=== PATIENT | male | born 1960 | race African-American/Black ===

== ENCOUNTER 2017-08-05 07:56 | Day surgery (SDC) | payer MEDICAID ==
[~2017-08-05] VITALS: Ht 160 cm; Wt 70.9 kg
[~2017-08-05 07:56] MED LIST: AMLO-512 PO; ASPI81 PO; ATOR40TA28 PO; FERR-89 PO
[2017-08-05] MEDS ORDERED: PROPOFOL 1% 20 ML VIAL IVP ONE (07:57)
[2017-08-05] MEDS ORDERED: SODIUM CHLORIDE 0.9% 1,000 ML IV ONE ×2 (08:16→08:30)
[2017-08-05] MEDS ORDERED: SODIUM CHLORIDE 0.9% 500 ML IV ONE (11:31)
== END 2017-08-05 12:45 | disposition home or self-care (01) ==
LOC: SURGERY 07:56
PROVIDERS: ATTEND Internal Medicine Gastroenterology
DX: D12.5 Benign neoplasm of sigmoid colon (principal); I11.9 Hypertensive heart disease without heart failure; E78.00 Pure hypercholesterolemia, unspecified; F14.11 Cocaine abuse, in remission; F17.210 Nicotine dependence, cigarettes, uncomplicated; Z86.010 Personal history of colon polyps; Z80.0 Family history of malignant neoplasm of digestive organs; Z79.82 Long term (current) use of aspirin; Z98.890 Other specified postprocedural states; Z72.89 Other problems related to lifestyle; Z89.201 Acquired absence of right upper limb, unspecified level; Z95.828 Presence of other vascular implants and grafts; Z86.711 Personal history of pulmonary embolism; Z79.899 Other long term (current) drug therapy
CPT/HCPCS: 45385; 88305; C1769; J2704; J7030; J7040